=== PATIENT | male | born 1975 | race Caucasian/White ===

== ENCOUNTER 2017-07-28 23:26 | Emergency (ER) | payer OTHER | END 2017-07-29 01:02 | disposition home or self-care (01) | LOC: D.ER 23:26 | DX: S83.91XA Sprain of unspecified site of right knee, initial encounter (principal); V09.9XXA Pedestrian injured in unspecified transport accident, initial encounter; Y93.89 Activity, other specified; Y92.89 Other specified places as the place of occurrence of the external cause; I10 Essential (primary) hypertension; F17.200 Nicotine dependence, unspecified, uncomplicated ==

== ENCOUNTER 2018-09-05 14:43 | Emergency (ER) | payer SELFPAY ==
[~2018-09-05] VITALS: Ht 185.4 cm; Wt 112.7 kg
[2018-09-05 15:02] VITALS: Ht 185.4 cm; Wt 112.7 kg
[2018-09-05] MEDS ORDERED: ULTRAM50 MG PO (15:05)
[2018-09-05] MEDS ORDERED: NORCO 10-325 TA1 TAB PO (15:05)
[2018-09-05] MEDS ORDERED: OXYCODONE-APAP1 TAB PO (15:06)
[2018-09-05 15:22] LABS: APPEARANCE CLEAR (CLEAR); BILIRUBIN NEGATIVE (NEGATIVE); COLOR YELLOW (YELLOW); GLUCOSE NEGATIVE (NEGATIVE); KETONE NEGATIVE (NEGATIVE); NITRITE NEGATIVE (NEGATIVE); PROTEIN NEGATIVE (NEGATIVE); SPECIFIC GRAVITY 1.015 (1.005-1.020); UROBILINOGEN NORMAL (NORMAL)
[2018-09-05 15:30] LABS: BASOPHILS 0.2 % (0-2); EOSINOPHILS 1.5 % (0-7); HEMATOCRIT 43.1 % (42.0-54.0); HEMOGLOBIN 15.6 g/dL (13.5-17.5); IMMATURE GRANULOCYTES 0.2 % (0-5); LYMPHOCYTES 20.7 % (15-50); MCH 31.7 pg (26.0-34.0); MCHC 36.2 g/dL (31.0-37.0); MCV 87.6 fL (80.0-100.0); MEAN PLATELET VOLUME 8.5 fL (7.4-10.4); MONOCYTES 6.3 % (2-11); NEUTROPHILS 71.1 % (40-80); PLATELET COUNT 221 10x3/uL (130-400); RBC 4.92 10x6/uL (4.20-6.10); RDW 12.8 % (11.5-14.5); WBC 9.4 10x3/uL (4.8-10.8)
[2018-09-05 15:55] LABS: UDS - AMPHET NEGATIVE QUAL (NEGATIVE); UDS - BARB NEGATIVE QUAL (NEGATIVE); UDS - BENZO NEGATIVE QUAL (NEGATIVE); UDS - COCAINE NEGATIVE QUAL (NEGATIVE); UDS - OPIATE NEGATIVE QUAL (NEGATIVE); UDS - PCP NEGATIVE QUAL (NEGATIVE); UDS - THC NEGATIVE QUAL (NEGATIVE)
[2018-09-05 15:56] LABS: ALBUMIN 3.9 g/dL (3.4-5.0); ALKALINE PHOSPHATASE 63 U/L (46-116); ALT (SGPT) 42 U/L (10-68); BILIRUBIN - TOTAL 0.27 mg/dL (0.2-1.3); CALC OSMOLALITY 273 mosm/kg (275-300); CALCIUM 9.2 mg/dL (8.5-10.1); CARBON DIOXIDE 25.1 mmol/L (21.0-32.0); CHLORIDE - SERUM 101 mmol/L (98-107); CREATININE - SERUM 0.9 mg/dL (0.6-1.3); GLUCOSE 121 mg/dL (74-106); POTASSIUM - SERUM 4.1 mmol/L (3.5-5.1); PROTEIN - SERUM 7.5 g/dL (6.4-8.2); SODIUM 136 mmol/L (136-145); UREA NITROGEN 16 mg/dL (7-18); eGFR NON AFRICAN AMERICAN > 90 mL/min (90-120)
[2018-09-05 21:48] VITALS: BP 119/76
[2018-09-06] MEDS ORDERED: ABILIFY10 MG PO (12:49)
[2018-09-06] MEDS ORDERED: PAXIL10 MG (12:49)
[2018-09-06] MEDS ORDERED: LISINOPRIL10 MG PO (12:51)
[2018-09-06] MEDS ORDERED: TOPROL XL50 MG PO (12:51)
== END 2018-09-05 21:54 | disposition home or self-care (01) ==
LOC: D.ER 14:43
PROVIDERS: Family Medicine
DX: F41.9 Anxiety disorder, unspecified (principal); Z86.59 Personal history of other mental and behavioral disorders; F17.200 Nicotine dependence, unspecified, uncomplicated

== ENCOUNTER 2018-09-06 12:40 | Emergency (ER) | payer SELFPAY ==
[~2018-09-06 12:40] MED LIST: NORCO 10-325 TA1 TAB PO; OXYCODONE-APAP1 TAB PO; ULTRAM50 MG PO
[2018-09-06 12:47] VITALS: Ht 185.4 cm
[2018-09-06] MEDS ORDERED: PAXIL10 MG (12:49)
[2018-09-06] MEDS ORDERED: ABILIFY10 MG PO (12:49)
[2018-09-06] MEDS ORDERED: LISINOPRIL10 MG PO (12:51)
[2018-09-06] MEDS ORDERED: TOPROL XL50 MG PO (12:51)
[2018-09-06 13:29] LABS: BASOPHILS 0.2 % (0-2); HEMOGLOBIN 15.1 g/dL (13.5-17.5); IMMATURE GRANULOCYTES 0.4 % (0-5); LYMPHOCYTES 26.1 % (15-50); MCH 31.6 pg (26.0-34.0); MCV 87.9 fL (80.0-100.0); MEAN PLATELET VOLUME 8.6 fL (7.4-10.4); MONOCYTES 8.4 % (2-11); NEUTROPHILS 61.9 % (40-80); PLATELET COUNT 212 10x3/uL (130-400); RBC 4.78 10x6/uL (4.20-6.10); WBC 8.2 10x3/uL (4.8-10.8)
[2018-09-06 13:45] LABS: ALBUMIN 3.5 g/dL (3.4-5.0); ALKALINE PHOSPHATASE 55 U/L (46-116); ALT (SGPT) 40 U/L (10-68); BILIRUBIN - TOTAL 0.28 mg/dL (0.2-1.3); CALC OSMOLALITY 279 mosm/kg (275-300); CALCIUM 8.9 mg/dL (8.5-10.1); CARBON DIOXIDE 29.4 mmol/L (21.0-32.0); CHLORIDE - SERUM 102 mmol/L (98-107); GLUCOSE 104 mg/dL (74-106); POTASSIUM - SERUM 4.2 mmol/L (3.5-5.1); PROTEIN - SERUM 7.1 g/dL (6.4-8.2); SODIUM 139 mmol/L (136-145); UREA NITROGEN 17 mg/dL (7-18); eGFR NON AFRICAN AMERICAN 86 mL/min (90-120)
[2018-09-06 13:53] LABS: UDS - AMPHET NEGATIVE QUAL (NEGATIVE); UDS - BARB NEGATIVE QUAL (NEGATIVE); UDS - BENZO NEGATIVE QUAL (NEGATIVE); UDS - COCAINE NEGATIVE QUAL (NEGATIVE); UDS - OPIATE NEGATIVE QUAL (NEGATIVE); UDS - PCP NEGATIVE QUAL (NEGATIVE); UDS - THC NEGATIVE QUAL (NEGATIVE)
[2018-09-06 13:56] LABS: APPEARANCE CLEAR (CLEAR); BILIRUBIN NEGATIVE (NEGATIVE); COLOR YELLOW (YELLOW); GLUCOSE NEGATIVE (NEGATIVE); KETONE NEGATIVE (NEGATIVE); NITRITE NEGATIVE (NEGATIVE); PROTEIN NEGATIVE (NEGATIVE); UROBILINOGEN NORMAL (NORMAL)
[2018-09-06 22:11] VITALS: BP 122/60
== END 2018-09-06 22:13 ==
LOC: D.ER 12:40
PROVIDERS: Family Medicine
DX: R45.851 Suicidal ideations (principal); F41.9 Anxiety disorder, unspecified; I10 Essential (primary) hypertension; F17.200 Nicotine dependence, unspecified, uncomplicated

== ENCOUNTER 2018-10-13 17:44 | Emergency (ER) | payer OTHER ==
[~2018-10-13] VITALS: Ht 185.4 cm; Wt 119.1 kg
[~2018-10-13 17:44] MED LIST changes: +ABILIFY10 MG PO; +LISINOPRIL10 MG PO; +PAXIL10 MG; +TOPROL XL50 MG PO
[2018-10-13 17:48] VITALS: Ht 185.4 cm; Wt 119.1 kg
[2018-10-13 18:28] LABS: UDS - AMPHET NEGATIVE QUAL (NEGATIVE); UDS - BARB NEGATIVE QUAL (NEGATIVE); UDS - BENZO NEGATIVE QUAL (NEGATIVE); UDS - COCAINE NEGATIVE QUAL (NEGATIVE); UDS - OPIATE NEGATIVE QUAL (NEGATIVE); UDS - PCP NEGATIVE QUAL (NEGATIVE); UDS - THC POSITIVE QUAL (NEGATIVE)
[2018-10-13 18:38] LABS: BASOPHILS 0.3 % (0-2); EOSINOPHILS 1.9 % (0-7); HEMATOCRIT 42.7 % (42.0-54.0); HEMOGLOBIN 15.5 g/dL (13.5-17.5); IMMATURE GRANULOCYTES 0.2 % (0-5); LYMPHOCYTES 20.2 % (15-50); MCH 31.8 pg (26.0-34.0); MCHC 36.3 g/dL (31.0-37.0); MCV 87.7 fL (80.0-100.0); MEAN PLATELET VOLUME 8.5 fL (7.4-10.4); MONOCYTES 6.1 % (2-11); NEUTROPHILS 71.3 % (40-80); PLATELET COUNT 232 10x3/uL (130-400); RBC 4.87 10x6/uL (4.20-6.10); WBC 9.9 10x3/uL (4.8-10.8)
[2018-10-13 19:21] LABS: CALC OSMOLALITY 274 mosm/kg (275-300); CALCIUM 9.6 mg/dL (8.5-10.1); CARBON DIOXIDE 22.5 mmol/L (21.0-32.0); CHLORIDE - SERUM 101 mmol/L (98-107); GLUCOSE 102 mg/dL (74-106); POTASSIUM - SERUM 4.5 mmol/L (3.5-5.1); SODIUM 136 mmol/L (136-145); THYROID STIMULATING HORMONE 1.08 uIU/mL (0.36-3.74); UREA NITROGEN 22 mg/dL (7-18); eGFR NON AFRICAN AMERICAN 86 mL/min (90-120)
[2018-10-13 19:46] LABS: APPEARANCE CLEAR (CLEAR); BILIRUBIN NEGATIVE (NEGATIVE); COLOR YELLOW (YELLOW); GLUCOSE NEGATIVE (NEGATIVE); KETONE NEGATIVE (NEGATIVE); NITRITE NEGATIVE (NEGATIVE); PROTEIN NEGATIVE (NEGATIVE); UROBILINOGEN NORMAL (NORMAL)
[2018-10-14 01:34] VITALS: BP 146/103
== END 2018-10-14 02:40 ==
LOC: D.ER 17:44
PROVIDERS: Family Medicine
DX: F41.9 Anxiety disorder, unspecified (principal); I10 Essential (primary) hypertension

== ENCOUNTER 2018-12-19 17:10 | Emergency (ER) | payer MEDICAID ==
[~2018-12-19] VITALS: Ht 185.4 cm; Wt 125.0 kg
[2018-12-19 17:19] VITALS: Ht 185.4 cm; Wt 125.0 kg
[2018-12-19 18:38] LABS: UDS - AMPHET NEGATIVE QUAL (NEGATIVE); UDS - BARB NEGATIVE QUAL (NEGATIVE); UDS - BENZO NEGATIVE QUAL (NEGATIVE); UDS - COCAINE NEGATIVE QUAL (NEGATIVE); UDS - OPIATE NEGATIVE QUAL (NEGATIVE); UDS - PCP NEGATIVE QUAL (NEGATIVE); UDS - THC NEGATIVE QUAL (NEGATIVE)
[2018-12-19 18:47] LABS: BASOPHILS 0.3 % (0-2); EOSINOPHILS 0.6 % (0-7); HEMATOCRIT 46.1 % (42.0-54.0); HEMOGLOBIN 16.7 g/dL (13.5-17.5); IMMATURE GRANULOCYTES 0.4 % (0-5); LYMPHOCYTES 13.3 % (15-50); MCH 32.4 pg (26.0-34.0); MCHC 36.2 g/dL (31.0-37.0); MCV 89.3 fL (80.0-100.0); MEAN PLATELET VOLUME 8.9 fL (7.4-10.4); MONOCYTES 6.5 % (2-11); NEUTROPHILS 78.9 % (40-80); PLATELET COUNT 245 10x3/uL (130-400); RBC 5.16 10x6/uL (4.20-6.10); RDW 12.5 % (11.5-14.5); WBC 11.6 10x3/uL (4.8-10.8)
[2018-12-19 19:19] LABS: CALC OSMOLALITY 275 mosm/kg (275-300); CALCIUM 9.8 mg/dL (8.5-10.1); CARBON DIOXIDE 25.2 mmol/L (21.0-32.0); CHLORIDE - SERUM 97 mmol/L (98-107); CREATININE - SERUM 1.1 mg/dL (0.6-1.3); GLUCOSE 103 mg/dL (74-106); POTASSIUM - SERUM 4.7 mmol/L (3.5-5.1); SODIUM 135 mmol/L (136-145); THYROID STIMULATING HORMONE 0.68 uIU/mL (0.36-3.74); UREA NITROGEN 29 mg/dL (7-18); eGFR NON AFRICAN AMERICAN 77 mL/min (90-120)
[2018-12-19 21:41] VITALS: BP 138/89
== END 2018-12-19 22:30 ==
LOC: D.ER 17:10
PROVIDERS: Emergency Medicine
DX: F41.8 Other specified anxiety disorders (principal); F32.9 Major depressive disorder, single episode, unspecified; R44.0 Auditory hallucinations; R45.851 Suicidal ideations

== ENCOUNTER 2020-02-16 14:14 | Emergency (ER) | payer SELFPAY ==
[~2020-02-16] VITALS: Ht 185.4 cm; Wt 100.0 kg
[2020-02-16 14:23] VITALS: Ht 185.4 cm; Wt 100.0 kg
[2020-02-16 14:45] LABS: BASOPHILS 0.2 % (0-2); EOSINOPHILS 2.1 % (0-7); HEMOGLOBIN 16.2 g/dL (13.5-17.5); IMMATURE GRANULOCYTES 0.3 % (0-5); MCH 31.5 pg (26.0-34.0); MCHC 35.2 g/dL (31.0-37.0); MCV 89.3 fL (80.0-100.0); MEAN PLATELET VOLUME 8.5 fL (7.4-10.4); MONOCYTES 7.4 % (2-11); PLATELET COUNT 245 10x3/uL (130-400); RBC 5.15 10x6/uL (4.20-6.10); RDW 12.4 % (11.5-14.5); WBC 9.2 10x3/uL (4.8-10.8)
[2020-02-16 15:00] LABS: BILIRUBIN NEGATIVE (NEGATIVE); GLUCOSE NEGATIVE (NEGATIVE); KETONE NEGATIVE (NEGATIVE); NITRITE NEGATIVE (NEGATIVE); SPECIFIC GRAVITY 1.015 (1.005-1.020); UROBILINOGEN NORMAL (NORMAL)
[2020-02-16 15:02] LABS: CALC OSMOLALITY 271 mosm/kg (275-300); CALCIUM 9.1 mg/dL (8.5-10.1); CARBON DIOXIDE 25.4 mmol/L (21.0-32.0); CHLORIDE - SERUM 102 mmol/L (98-107); GLUCOSE 92 mg/dL (74-106); POTASSIUM - SERUM 4.3 mmol/L (3.5-5.1); SODIUM 136 mmol/L (136-145); UREA NITROGEN 12 mg/dL (7-18); eGFR NON AFRICAN AMERICAN 85 mL/min (90-120)
[2020-02-16 15:03] LABS: UDS - AMPHET NEGATIVE QUAL (NEGATIVE); UDS - BARB NEGATIVE QUAL (NEGATIVE); UDS - BENZO NEGATIVE QUAL (NEGATIVE); UDS - COCAINE NEGATIVE QUAL (NEGATIVE); UDS - OPIATE NEGATIVE QUAL (NEGATIVE); UDS - PCP NEGATIVE QUAL (NEGATIVE); UDS - THC NEGATIVE QUAL (NEGATIVE)
[2020-02-16 15:09] LABS: ALBUMIN 3.9 g/dL (3.4-5.0); ALKALINE PHOSPHATASE 74 U/L (30-120); ALT (SGPT) 42 U/L (10-68); BILIRUBIN - TOTAL 0.46 mg/dL (0.2-1.3); MAGNESIUM - SERUM 1.9 mg/dL (1.8-2.4); PROTEIN - SERUM 7.4 g/dL (6.4-8.2)
--- NOTE | 2020-02-16 15:42 | NUR ---
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 DAUGHTER DID HELP WITH HIS PTSD AND DEPRESSION. DAUGHTER'S MOTHER TOOK HER AWAY FROM HIM SO ALL FEELING RETURNED. PT ALSO LOST HIS JOB AND HOUSE. PT RATES A HIGH ON THE SUICIDE ASSESSMENT. A SITTER WAS ORDERED. SAFETY PLAN INIATED AND RESOURCES GIVEN.
[2020-02-17 00:14] VITALS: BP 129/88
== END 2020-02-17 02:22 ==
LOC: D.ER 14:14
PROVIDERS: Emergency Medicine
DX: R45.851 Suicidal ideations (principal); F31.9 Bipolar disorder, unspecified; F19.10 Other psychoactive substance abuse, uncomplicated; I10 Essential (primary) hypertension; Z72.0 Tobacco use